=== PATIENT | male | born 1970 | race Caucasian/White ===

== ENCOUNTER 2021-02-05 13:03 | Emergency (ER) | payer MEDICAID, OTHER ==
[~2021-02-05] VITALS: Ht 182.9 cm; Wt 127.0 kg
[2021-02-05] MEDS ORDERED: IV NS 0.9% 1,000 ML BAG IV ONE (13:30)
[2021-02-05] MEDS ORDERED: ONDANSETRON HCL/PF 4 MG/2 ML VIAL IVP ONE (13:30)
[2021-02-05] MEDS ORDERED: FAMOTIDINE/PF INJ 20 MG/2 ML VIAL IV ONE ×2 (13:30→13:32)
[2021-02-05] MEDS ORDERED: ONDANSETRON HCL/PF 4 MG/2 ML VIAL ONE (13:32)
--- NOTE | 2021-02-05 13:33 | NUR ---
[id number] FRM HOME FEELING WEAK W/ THOAT DISCOMFORT SINCE THIS MORNING. ADMITS DRINKING ALCOHOL LAST NIGHT. IN ROOM AIR AND DENIES SOB. RESPIRATION REGULAR AND UNLABORED. ATTACHED TO THE MONITOR.
--- NOTE | 2021-02-05 14:05 | NUR ---
IV LINE IS ESTABLISHED, BLOOD SPECIMEN COLLECTED AND SENT TO THE LAB. THE LINE IS SALINE LOCKED.
[2021-02-05 14:12] LABS: HEMOGLOBIN 14.3 g/dL (13.5-17.5); LYMPHOCYTES # (AUTO) 0.6 K/uL (0.8-4.8); MONOCYTES # (AUTO) 0.2 K/uL (0.1-1.30); NEUTROPHILS # (AUTO) 1.9 K/uL (1.8-8.9); WHITE BLOOD COUNT (AUTO) 2.8 K/uL (4.3-11.0)
[2021-02-05 14:22] LABS: BASOPHILS % (AUTO) 0.8 % (0.0-2.0); HEMATOCRIT 41 % (39-51); MEAN CORPUSCULAR HGB CONC 35 g/dl (31.0-36.0); MEAN CORPUSCULAR VOLUME 91 fL (80-96); MONOCYTES % (AUTO) 6.7 % (2.0-12.0); NEUTROPHILS % (AUTO) 68.5 % (43.0-81.0); RED BLOOD CELL COUNT(AUTO) 4.51 MIL/uL (4.5-6.0)
[2021-02-05 14:25] LABS: PLATELET COUNT (AUTO) 38 K/uL (150-450)
[2021-02-05 14:29] LABS: CALCIUM, SERUM 8.4 mg/dL (8.5-10.1); CARBON DIOXIDE 27 mmol/L (21-32); CHLORIDE 100 mmol/L (98-107); CREATININE 0.8 mg/dL (0.6-1.3); GLUCOSE 259 mg/dL (74-106); POTASSIUM 3.7 mmol/L (3.5-5.1); SODIUM SERUM 136 mmol/L (136-145); UREA NITROGEN, BLOOD 4 mg/dL (7-18)
[2021-02-05 14:34] LABS: ALANINE AMINOTRANSFERASE 154 U/L (12-78); ALBUMIN 3.4 g/dL (3.4-5.0); ALKALINE PHOSPHATASE 83 U/L (46-116); ASPARTATE AMINOTRANSFERASE 110 U/L (15-37); BILIRUBIN,DIRECT 0.4 mg/dL (0.0-0.2); BILIRUBIN,TOTAL 1.5 mg/dL (0.2-1.0); LIPASE 130 U/L (73-393); TOTAL PROTEIN, SERUM 8.3 g/dL (6.4-8.2)
[2021-02-05 15:56] LABS: BAND % (MANUAL) 2 % (0.0-5.0); EOSINOPHILS % (MANUAL) 3 % (0-4); LYMPHOCYTES % (MANUAL) 31 % (16-48); MONOCYTES % (MANUAL) 13 % (0-11.0); NEUTROPHILS % (MANUAL) 51 (42-76)
--- NOTE | 2021-02-05 18:03 | NUR ---
IV removed. Catheter intact and site benign. Pressure and 4x4 applied to site. No bleeding noted.Patient discharged to home in stable condition. Written and verbal after care instructions given. Patient verbalizes understanding of instruction.
[2021-02-05 18:04] VITALS: BP 131/82
== END 2021-02-05 18:04 | disposition home or self-care (01) ==
LOC: ER 13:17
DX: F10.10 Alcohol abuse, uncomplicated (principal); D72.819 Decreased white blood cell count, unspecified; D69.6 Thrombocytopenia, unspecified; R74.01 Elevation of levels of liver transaminase levels; E11.9 Type 2 diabetes mellitus without complications; Y90.9 Presence of alcohol in blood, level not specified
CPT/HCPCS: 36415; 71045; 80048; 80076; 83690; 84484 ×2; 85007; 85025; 93005 ×2; 96361; 96374; 96375; 99285; J2405; J3490; J7030

== ENCOUNTER 2023-09-28 14:29 | Emergency (ER) | payer OTHER ==
[~2023-09-28] VITALS: Ht 188 cm; Wt 90.7 kg
[2023-09-28 14:40] VITALS: TEMP 97.8
[2023-09-28] MEDS ORDERED: KETOROLAC TROMETHAMINE 15 MG/ML VIAL ONE (14:57)
[2023-09-28] MEDS ORDERED: NAPR-1164 PO (15:09)
[2023-09-28] MEDS: KETOROLAC TROMETHAMINE 15 MG/ML VIAL IM ONE (15:30)
[2023-09-28 16:14] VITALS: BP 145/85; O2SAT 97
== END 2023-09-28 16:00 | disposition home or self-care (01) ==
LOC: ER 14:34
DX: S13.4XXA Sprain of ligaments of cervical spine, initial encounter (principal); M79.605 Pain in left leg; M79.604 Pain in right leg; M79.602 Pain in left arm; M79.601 Pain in right arm; E11.9 Type 2 diabetes mellitus without complications; V43.92XA Unspecified car occupant injured in collision with other type car in traffic accident, initial encounter; Y93.89 Activity, other specified; Y92.89 Other specified places as the place of occurrence of the external cause; Y99.8 Other external cause status
CPT/HCPCS: 99283; 96372; J1885